=== PATIENT | male | born 1930 | race Caucasian/White ===

== ENCOUNTER 2018-06-02 17:01 | Inpatient (IN) | payer OTHER ==
[~2018-06-02] VITALS: Ht 170.2 cm; Wt 87.1 kg
--- OUTSIDE RECORDS SUMMARY | 2018-06-02 17:03 | XMS REPORT | Clinical Summary ---
Author Author HEIDY [facility] Organization [facility] Address Unknown Phone Unavailable Care Team Providers Care Manager Critical Care Unit Name Role Phone Rosa Sotomayor PCP Unavailable Allergies Comments Active Allergy Reactions Severity Noted Date Unknown reaction Penicillins Other (See High 05/09/2014 Comments) Medications End Date Status Medication Sig Dispensed Refills Start Date Active cyanocobalamin (VITAMIN Take 100 mcg 0 B-12) 100 MCG tablet by mouth daily. Active docusate sodium (COLACE) Take 100 mg 0 100 MG capsule by mouth 2 (two) times daily. Active gabapentin (NEURONTIN) Take 100 mg 0 100 MG capsule by mouth 3 (three) times daily. Active simvastatin (ZOCOR) 40 MG Take 40 mg by 0 tablet mouth nightly. Active pregabalin (LYRICA) 75 MG Take 75 mg by 0 capsule mouth daily. Active folic acid (FOLVITE) 1 MG Take 1 tablet 60 tablet 0 04/26/201 tablet (1 mg total) 7 by mouth daily. Active ipratropium-albuterol Take 3 mLs by 60 ampule 0 /20/201 (DUO-NEB) 0.5 mg-3 mg(2.5 nebulization 7 mg base)/3 mL nebulizer every 6 (six) solution hours as needed for Wheezing. Active torsemide (DEMADEX) 20 MG Take 2 240 tablet 0 04/25/201 tablet tablets (40 7 mg total) by mouth 2 (two) times daily. Active arformoterol (BROVANA) 15 Take 2 mLs 240 mL 0 10/20/201 mcg/2 mL nebulizer (15 mcg 7 solution total) by nebulization 2 (two) times daily. Active budesonide (PULMICORT) Take 2 mLs 240 mL 0 10/20/201 0.5 mg/2 mL nebulizer (0.5 mg 7 solution total) by nebulization 2 (two) times daily. 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 per 04-17-2017 TTE 04/18/2017 Depressed right ventricular systolic function, per 04-17-2017 TTE 04/18/2017 Diastolic dysfunction, per 04-17-2017 TTE 04/18/2017 Anemia 04/18/2017 Volume overload 04/18/2017 Chronic respiratory failure with hypercapnia 04/18/2017 Emphysema lung (HCC), per 04-15-2017 CT-scan 04/16/2017 SOB (shortness of breath) 04/15/2017 Chronic acquired lymphedema 04/15/2017 Hyperlipidemia 04/15/2017 Peripheral polyneuropathy 04/15/2017 Essential hypertension 04/15/2017 History of COPD 04/15/2017 Social History Date Tobacco Use Types Packs/Day Years Used Unknown If Ever Smoked Smokeless Tobacco: Never Used Alcohol Use Drinks/Week oz/Week Comments No Sex Assigned at Date Recorded Not on file Industry Job Start Date Occupation Not on file Not on file Not on file Travel End Travel History Travel Start No recent travel history available. Last Filed Vital Signs Not on file Plan of Treatment Not on file Results Not on fileafter 06/01/2017 Insurance Payer Benefit Subscriber ID Type Phone Address Plan / Group [employer] xxxxxxxxx [facility] ALL Contracted Advance Directives For more information, please contact: [facility] [address] [place] [address] Date Inactivated Comments Code Status Date Activated 04/25/2017 5:42 PM Full Code 04/15/2017 8:29 PM This code status was determined by: Patient 05/10/2014 12:27 PM Full Code 05/09/2014 4:14 PM This code status was determined by: Patient
--- OUTSIDE RECORDS SUMMARY | 2018-06-02 17:04 | XMS REPORT ---
Author Author [facility] Address Unknown Phone Unavailable Care Team Providers Care Supply Chain Systems Manager Name Role Phone AGA MONIQUEJaniceJOSE ENRIQUE KILPATRICK Unavailable Unavailable Problems This patient has no known problems. Allergies, Adverse Reactions, Alerts This patient has no known allergies or adverse reactions. Medications This patient has no known medications. Results Test Description Test Time Test Comments Text Results Atomic Results Result Comments BLOOD CULTURE 2017-04-28 01:00:00 CULTURE (BEAKER) (test lelm=4719) No growth in 5 days BLOOD [id number] 01:00:00* Test Item Value Reference Range Comments CULTURE (BEAKER) (test rsxp=6852) No growth in 5 days BASIC METABOLIC [id number] 07:46:00* Test Item Value Reference Range Comments SODIUM (BEAKER) (test fcrm=627) 137 meq/L 136-145 POTASSIUM (BEAKER) (test hrrm=932) 3.9 meq/L 3.5-5.1 CHLORIDE (BEAKER) (test kftn=238) 97 meq/L 98-107 CO2 (BEAKER) (test kkzi=865) 31 meq/L 22-29 BLOOD UREA NITROGEN (BEAKER) (test uldp=445) 39 mg/dL 7-21 CREATININE (BEAKER) (test vjcq=681) 2.07 mg/dL 0.57-1.25 GLUCOSE RANDOM (BEAKER) (test wkxv=321) 98 mg/dL 70-105 CALCIUM (BEAKER) (test kyhh=405) 8.6 mg/dL 8.4-10.2 EGFR (BEAKER) (test peyj=6078) 31 mL/min/1.73 sq m ESTIMATED GFR IS NOT ACCURATE CREATININE CLEARANCE IN PREDICTING GLOMERULAR FILTRATION RATE. ESTIMATED GFR IS NOT APPLICABLE FOR DIALYSIS PATIENTS. BASIC METABOLIC [id number] 05:30:00* Test Item Value Reference Range Comments SODIUM (BEAKER) (test vwwz=655) 138 meq/L 136-145 POTASSIUM (BEAKER) (test rdsn=730) 3.9 meq/L 3.5-5.1 CHLORIDE (BEAKER) (test qxsy=494) 98 meq/L 98-107 CO2 (BEAKER) (test rrvu=525) 33 meq/L 22-29 BLOOD UREA NITROGEN (BEAKER) (test zlvy=731) 40 mg/dL 7-21 CREATININE (BEAKER) (test rhjb=404) 2.09 mg/dL 0.57-1.25 GLUCOSE RANDOM (BEAKER) (test reop=995) 103 mg/dL 70-105 CALCIUM (BEAKER) (test ieqh=407) 8.6 mg/dL 8.4-10.2 EGFR (BEAKER) (test aqno=9646) 30 mL/min/1.73 sq m ESTIMATED GFR IS NOT ACCURATE CREATININE CLEARANCE IN PREDICTING GLOMERULAR FILTRATION RATE. ESTIMATED GFR IS NOT APPLICABLE FOR DIALYSIS PATIENTS. VANCOMYCIN LEVEL, [id number] 05:21:00* Test Item Value Reference Range Comments VANCOMYCIN RANDOM (BEAKER) (test rvfh=376) 17.2 ug/mL Reference Range: No NormalsBASIC METABOLIC [id number] 05:52:00* Test Item Value Reference Range Comments SODIUM (BEAKER) (test jbex=606) 136 meq/L 136-145 POTASSIUM (BEAKER) (test xpbw=486) 4.3 meq/L 3.5-5.1 CHLORIDE (BEAKER) (test ixrs=925) 99 meq/L 98-107 CO2 (BEAKER) (test qdtc=920) 30 meq/L 22-29 BLOOD UREA NITROGEN (BEAKER) (test rurq=769) 40 mg/dL 7-21 CREATININE (BEAKER) (test uqve=107) 2.15 mg/dL 0.57-1.25 GLUCOSE RANDOM (BEAKER) (test hivd=441) 111 mg/dL 70-105 CALCIUM (BEAKER) (test wavh=144) 8.7 mg/dL 8.4-10.2 EGFR (BEAKER) (test vqws=6143) 29 mL/min/1.73 sq m ESTIMATED GFR IS NOT ACCURATE CREATININE CLEARANCE IN PREDICTING GLOMERULAR FILTRATION RATE. ESTIMATED GFR IS NOT APPLICABLE FOR DIALYSIS PATIENTS. B-TYPE NATRIURETIC FACTOR (BNP)2017-04-22 05:50:00* Test Item Value Reference Range Comments B-TYPE NATRIURETIC PEPTIDE (BEAKER) (test hvky=612) 1053 pg/mL 0-100 U/S, RENAL, [id number] 21:49:00Reason for exam:->right exophytic lesion seen on ct chestFINAL REPORT Renal ultrasound. Clinical History: right exophytic lesion seen on ct chest. Comparison Study: CT scan of the chest dated April 15, 2017. Findings: This is a limited visibility study. The right kidney measures 10.3 x 5.1 x 4.9 cm and left kidney measures 10.6 x 5.2 x 5.6 cm. There is no evidence of hydronephrosis, nephrolithiasis or renal mass on either side. The echogenicity is normal bilaterally. The cortical thickness on the right side is 1.1 cm and on the left side is 1.0 cm. Bilateral renal cysts are seen. On the right side, there are three measuring 3.7 x 2.1 x 3.0 cm the lower pole, 2.5 x 3.1 x 2.3 cm in the interpolar region and 2.1 x 2.0 x 2.0 cm in the lower pole. On the left side, a 2.8 x 2.3 x 3.2 cm lower pole cyst is present. Color flow is documented to both kidneys. The bladder is partially filled with urine. Impression:1. Bilateral renal cysts. The exophytic upper pole lesion seen on CT scan is not as well seen on ultrasound as this is a limited study but statistically most likely also represents a cyst. Signed: Domenic Roldan MDReport Verified Date/Time: 04/21/2017 21:49:37 Reading Location: [address] Consult Reading Room NOFIXATION ELECTROPHORESIS (DUSTIN) 2017-04-21 16:18:00* Test Item Value Reference Range Comments IMMUNOGLOBULIN G (IGG) (BEAKER) (test msdw=264) 1878 mg/dL 540-1822 IMMUNOGLOBULIN A (IGA) (BEAKER) (test ehlx=252) 821 mg/dL 63-484 IMMUNOGLOBULIN M (IGM) (BEAKER) (test idmo=986) 80 mg/dL 22-293 SERUM DUSTIN ID (BEAKER) (test kzss=3978) No monoclonal proteins detected. Polyclonal distribution of immunoglobulins. VDES-VFBPDHJMEWR-172 (BEAKER) (test ubgt=4925) Tenisha Miranda MD (electronic signature) Do not collect, specimen already in lab.BASIC METABOLIC [id number] 14:11:00 * Test Item Value Reference Range Comments SODIUM (BEAKER) (test ktqw=606) 138 meq/L 136-145 POTASSIUM (BEAKER) (test wqzk=550) 4.2 meq/L 3.5-5.1 CHLORIDE (BEAKER) (test fcxx=907) 97 meq/L 98-107 CO2 (BEAKER) (test xbdw=224) 33 meq/L 22-29 BLOOD UREA NITROGEN (BEAKER) (test gjgz=363) 39 mg/dL 7-21 CREATININE (BEAKER) (test fedf=597) 2.22 mg/dL 0.57-1.25 GLUCOSE RANDOM (BEAKER) (test yrve=880) 124 mg/dL 70-105 CALCIUM (BEAKER) (test leke=517) 9.3 mg/dL 8.4-10.2 EGFR (BEAKER) (test hlvz=0929) 28 mL/min/1.73 sq m ESTIMATED GFR IS NOT ACCURATE CREATININE CLEARANCE IN PREDICTING GLOMERULAR FILTRATION RATE. ESTIMATED GFR IS NOT APPLICABLE FOR DIALYSIS PATIENTS. URINE PROTEIN ELECTROPHORESIS, [id number] 12:30:00* Test Item Value Reference Range Comments PROTEIN, URINE (BEAKER) (test fqam=3998) 42 mg/dL 0-14 ALBUMIN URINE ELP (BEAKER) (test igqy=9386) 38.9 % GAMMA GLOBULIN URINE (BEAKER) (test dtml=3559) 61.1 % UPEP, ID-438 (BEAKER) (test kqoe=4337) No monoclonal bands detected. LIIN-LJAHMPXRIJA-974 (BEAKER) (test dpmp=3012) Tenisha Miranda MD (electronic signature) PROTEIN ELECTROPHORESIS, [id number] 12:25:00* Test Item Value Reference Range Comments ALBUMIN FRACTION (BEAKER) (test rllj=481) 2.2 g/dL 3.5-5.5 ALPHA 1 FRACTION (BEAKER) (test airm=727) 0.4 g/dL 0.2-0.4 ALPHA 2 FRACTION (BEAKER) (test fupi=452) 0.8 g/dL 0.5-0.9 BETA FRACTION (BEAKER) (test isdh=956) 1.0 g/dL 0.6-1.1 GAMMA GLOBULIN FRACTION (BEAKER) (test cupi=906) 1.9 g/dL 0.7-1.7 INTERPRETATION-119 (BEAKER) (test vzpc=8654) Decreased albumin with concurrent relative increases in all globulin fractions. Polyclonal elevation of gamma globulins, suggesting chronic inflammation. Serum DUSTIN ordered to exclude underlying monoclonal bands. FTCJ-XPCMAUFDQMN-906 (BEAKER) (test frvi=4742) Tenisha Miranda MD (electronic signature) PROTEIN TOTAL SERUM, SPEP (BEAKER) (test cyuz=9405) 6.3 gm/dL 6.0-8.3 Do not collect, specimen already in lab.BLOOD [id number] 01:01:00* Test Item Value Reference Range Comments CULTURE (BEAKER) (test nfos=5194) No growth in 5 days VANCOMYCIN LEVEL, [id number] 19:23:00* Test Item Value Reference Range Comments VANCOMYCIN RANDOM (BEAKER) (test mbyf=088) 20.1 ug/mL Reference Range: No NormalsRAD, KNEE, 1 OR 2 VIEWS, [id number] 15:36:00 Reason for exam:->left knee pain upon weight bearingShould this be performed at the bedside?->YesFINAL REPORT Left knee, two images HISTORY: Pain COMPARISON: 04/19/2017 IMPRESSION:No fracture. No dislocation. No joint effusion. Signed: Chaparrita Delgadillo MDReport Verified Date/Time: 04/20/2017 15:36:18 Reading Location: [facility] C013 Transitional Reading Room OMYCIN LEVEL, [id number] 22:40:00* Test Item Value Reference Range Comments VANCOMYCIN RANDOM (BEAKER) (test kvjk=137) 28.2 ug/mL Reference Range: No NormalsPlease hold dose of vancomycin if level > 20 CREATININE, RANDOM [id number] 20:40:00* Test Item Value Reference Range Comments CREATININE URINE (BEAKER) (test qcom=346) 67.8 mg/dL Reference Range: No NormalsPROTEIN, RANDOM [id number] 20:40:00* Test Item Value Reference Range Comments PROTEIN, URINE (WILIAN) (test fnjr=9018) 42 mg/dL 0-14 SODIUM, RANDOM [id number] 20:40:00* Test Item Value Reference Range Comments SODIUM URINE (WILIAN) (test klbn=029) 41 meq/L Reference Range: No NormalsRAD, LEG, [id number] 17:18:00Reason for exam:-> cellulitis/swellingShould this be performed at the bedside?->YesFINAL REPORT Exam:1. Left tibia/fibula, three images.2. Left ankle, four images. HISTORY: Cellulitis COMPARISON: None IMPRESSION:Marked swelling of the imaged left thoracotomy. No underlying fracture or dislocation. No radiopaque foreign body. Signed: Chaparrita Delgadillo Verified Date/Time: 04/19/2017 17:18:53 Reading Location: [address] Consult Reading Room Electr onically signed by: CHAPARRITA DELGADILLO M.D. on 04/19/2017 05:18 PM RAD, ANKLE, MIN 3 VIEWS, [id number] 17:18:00Reason for exam:->cellulitis/swelling Should this be performed at the bedside?->YesFINAL REPORT Exam:1. Left tibia/fibula, three images.2. Left ankle, four images. HISTORY: Cellulitis COMPARISON: None IMPRESSION:Marked swelling of the imaged left thoracotomy. No underlying fracture or dislocation. No radiopaque foreign body. Signed: Chaparrita Delgadillo Verified Date/Time: 04/19/2017 17:18:53 Reading Location: [facility] C013 Consult Reading Room [id number] 06:32:00 * Test Item Value Reference Range Comments FERRITIN (WILIAN) (test jnqe=499) 254 ng/mL 5-275 VITAMIN B12 AND [id number] 06:32:00* Test Item Value Reference Range Comments VITAMIN B12 (BEAKER) (test ecka=871) 275 pg/mL 213-816 FOLATE (BEAKER) (test utfr=945) 3.4 ng/mL >=7.0 IRON, TIBC, % SAT. (WITHOUT FERRITIN)2017-04-19 06:00:00* Test Item Value Reference Range Comments IRON (BEAKER) (test dqwc=634) 15 ug/dL 40-160 TOTAL IRON BINDING CAPACITY (BEAKER) (test mzrn=229) 140 ug/dL 250-450 IRON % SATURATION (2) (BEAKER) (test zgvb=2247) 11 % 20-55 [id number] 05:58:00* Test Item Value Reference Range Comments PHOSPHORUS (BEAKER) (test abrp=487) 3.2 mg/dL 2.3-4.7 [id number] 05:58:00* Test Item Value Reference Range Comments MAGNESIUM (BEAKER) (test huet=596) 1.9 mg/dL 1.6-2.6 BASIC METABOLIC [id number] 05:58:00* Test Item Value Reference Range Comments SODIUM (BEAKER) (test zrkd=534) 139 meq/L 136-145 POTASSIUM (BEAKER) (test nhnp=808) 4.1 meq/L 3.5-5.1 CHLORIDE (BEAKER) (test aaze=475) 99 meq/L 98-107 CO2 (BEAKER) (test zbgh=184) 29 meq/L 22-29 BLOOD UREA NITROGEN (BEAKER) (test qouq=383) 36 mg/dL 7-21 CREATININE (BEAKER) (test kino=533) 2.15 mg/dL 0.57-1.25 GLUCOSE RANDOM (BEAKER) (test orig=914) 108 mg/dL 70-105 CALCIUM (BEAKER) (test vmuo=177) 8.4 mg/dL 8.4-10.2 EGFR (BEAKER) (test vdvf=2279) 29 mL/min/1.73 sq m ESTIMATED GFR IS NOT ACCURATE CREATININE CLEARANCE IN PREDICTING GLOMERULAR FILTRATION RATE. ESTIMATED GFR IS NOT APPLICABLE FOR DIALYSIS PATIENTS. BLOOD GAS, [id number] 17:07:00* Test Item Value Reference Range Comments PH ARTERIAL (BEAKER) (test lttg=686) 7.35 7.35-7.45 PCO2 ARTERIAL (BEAKER) (test xkqi=192) 62 mmHg 35-45 PO2 ARTERIAL (BEAKER) (test arnn=671) 98 mmHg 80-90 O2 SATURATION ARTERIAL (BEAKER) (test aihq=495) 96.9 % 96.0-97.0 HCO3 ARTERIAL (BEAKER) (test oslo=574) 34 mmol/L 21-29 BASE EXCESS ARTERIAL (BEAKER) (test vron=817) 6.6 mmol/L -2.0-3.0 PATIENT TEMPERATURE (BEAKER) (test rmxf=2963) 37.2 C FIO2 (BEAKER) (test wwqb=1904) 21.0 % URINALYSIS W/ [id number] 15:51:00* Test Item Value Reference Range Comments COLOR (BEAKER) (test ccel=980) Yellow CLARITY (BEAKER) (test cnoa=283) Clear SPECIFIC GRAVITY UA (BEAKER) (test yonk=505) 1.007 1.001-1.035 PH UA (BEAKER) (test sozq=314) 5.0 5.0-8.0 PROTEIN UA (BEAKER) (test spwe=407) 30 mg/dL Negative GLUCOSE UA (BEAKER) (test bunr=217) Negative Negative KETONES UA (BEAKER) (test fofn=362) Negative Negative BILIRUBIN UA (BEAKER) (test zvqz=735) Negative Negative BLOOD UA (BEAKER) (test rcxf=845) Large Negative NITRITE UA (BEAKER) (test khwg=345) Negative Negative LEUKOCYTE ESTERASE UA (BEAKER) (test tbug=306) Negative Negative UROBILINOGEN UA (BEAKER) (test nhyc=067) 0.2 mg/dL 0.2-1.0 RBC UA (BEAKER) (test aztm=069) 62 /HPF WBC UA (BEAKER) (test jsyc=011) 3 /HPF BACTERIA (BEAKER) (test dywt=079) Rare MUCUS (BEAKER) (test yijk=0041) Rare SQUAMOUS EPITHELIAL (BEAKER) (test wwws=264) < /HPF HYALINE CASTS (BEAKER) (test swzv=081) 11 /LPF CRYSTALS, URINE (BEAKER) (test qitw=5471) Rare SOURCE(BEAKER) (test dasg=3059) Urine, Voided WOUND CULTURE + GRAM [id number] 10:12:00* Test Item Value Reference Range Comments CULTURE (BEAKER) (test cexw=0428) Clindamycin (test code=10) Erythromycin (test code=4) Linezolid (test code=40) Nitrofurantoin (test code=23) Oxacillin (test code=14) Rifampin (test code=43) Tetracycline (test code=2) Trimethoprim + Sulfamethoxazole (test code=47) Vancomycin (test code=13) CULTURE (BEAKER) (test saiy=7747) 4+ Methicillin resistant Staphylococcus aureus GRAM STAIN RESULT (BEAKER) (test neox=7854) No WBCs GRAM STAIN RESULT (BEAKER) (test dsxl=012676) 1+ gram positive cocci in pairs 4+ skin [id number] 06:15:00* Test Item Value Reference Range Comments MAGNESIUM (BEAKER) (test ybjq=942) 2.0 mg/dL 1.6-2.6 BASIC METABOLIC [id number] 06:15:00* Test Item Value Reference Range Comments SODIUM (BEAKER) (test zuvl=161) 139 meq/L 136-145 POTASSIUM (BEAKER) (test hahz=319) 4.2 meq/L 3.5-5.1 CHLORIDE (BEAKER) (test mckv=545) 100 meq/L 98-107 CO2 (BEAKER) (test ntfz=334) 30 meq/L 22-29 BLOOD UREA NITROGEN (BEAKER) (test yrsg=797) 33 mg/dL 7-21 CREATININE (BEAKER) (test semo=276) 2.04 mg/dL 0.57-1.25 GLUCOSE RANDOM (BEAKER) (test rnvv=754) 109 mg/dL 70-105 CALCIUM (BEAKER) (test hyuy=683) 8.3 mg/dL 8.4-10.2 EGFR (BEAKER) (test julh=7808) 31 mL/min/1.73 sq m ESTIMATED GFR IS NOT ACCURATE CREATININE CLEARANCE IN PREDICTING GLOMERULAR FILTRATION RATE. ESTIMATED GFR IS NOT APPLICABLE FOR DIALYSIS PATIENTS. CBC W/PLT COUNT & AUTO [id number] 06:09:00* Test Item Value Reference Range Comments WHITE BLOOD CELL COUNT (BEAKER) (test utcb=558) 8.3 K/ L 3.5-10.5 RED BLOOD CELL COUNT (BEAKER) (test krmd=248) 3.19 M/ L 4.63-6.08 HEMOGLOBIN (BEAKER) (test eckv=519) 9.3 GM/DL 13.7-17.5 HEMATOCRIT (BEAKER) (test odan=985) 32.0 % 40.1-51.0 MEAN CORPUSCULAR VOLUME (BEAKER) (test yfhx=006) 100.3 fL 79.0-92.2 MEAN CORPUSCULAR HEMOGLOBIN (BEAKER) (test zcxb=119) 29.2 pg 25.7-32.2 MEAN CORPUSCULAR HEMOGLOBIN CONC (BEAKER) (test azep=284) 29.1 GM/DL 32.3-36.5 RED CELL DISTRIBUTION WIDTH (BEAKER) (test yntw=185) 13.7 % 11.6-14.4 PLATELET COUNT (BEAKER) (test scdz=351) 317 K/CU MM 150-450 MEAN PLATELET VOLUME (BEAKER) (test rwlu=942) 10.4 fL 9.4-12.4 NUCLEATED RED BLOOD CELLS (BEAKER) (test sjlq=640) 0 /100 WBC 0-0 NEUTROPHILS RELATIVE PERCENT (BEAKER) (test txab=678) 71 % LYMPHOCYTES RELATIVE PERCENT (BEAKER) (test azgv=897) 16 % MONOCYTES RELATIVE PERCENT (BEAKER) (test rzsc=087) 10 % EOSINOPHILS RELATIVE PERCENT (BEAKER) (test peaa=197) 2 % BASOPHILS RELATIVE PERCENT (BEAKER) (test ftsq=852) 1 % NEUTROPHILS ABSOLUTE COUNT (BEAKER) (test ycqg=252) 5.92 K/ L 1.78-5.38 LYMPHOCYTES ABSOLUTE COUNT (BEAKER) (test phcc=972) 1.31 K/ L 1.32-3.57 MONOCYTES ABSOLUTE COUNT (BEAKER) (test jsbo=988) 0.81 K/ L 0.30-0.82 EOSINOPHILS ABSOLUTE COUNT (BEAKER) (test qsnx=670) 0.19 K/ L 0.04-0.54 BASOPHILS ABSOLUTE COUNT (BEAKER) (test kdwt=356) 0.04 K/ L 0.01-0.08 IMMATURE GRANULOCYTES-RELATIVE PERCENT (BEAKER) (test tgez=7828) 1 % 0-1 VANCOMYCIN LEVEL, [id number] 01:34:00* Test Item Value Reference Range Comments VANCOMYCIN TROUGH (BEAKER) (test okrz=023) 17.4 ug/mL 10.0-20.0 Hold further dosing for level > 20, alert and Rph.BASIC METABOLIC PANEL 2017-04-17 05:37:00* Test Item Value Reference Range Comments SODIUM (BEAKER) (test fnkr=088) 138 meq/L 136-145 POTASSIUM (BEAKER) (test kuey=645) 4.7 meq/L 3.5-5.1 CHLORIDE (BEAKER) (test pmzt=023) 100 meq/L 98-107 CO2 (BEAKER) (test ofxd=300) 28 meq/L 22-29 BLOOD UREA NITROGEN (BEAKER) (test vlhe=998) 30 mg/dL 7-21 CREATININE (BEAKER) (test ylsz=309) 2.27 mg/dL 0.57-1.25 GLUCOSE RANDOM (BEAKER) (test zdif=331) 107 mg/dL 70-105 CALCIUM (BEAKER) (test rmzi=331) 8.5 mg/dL 8.4-10.2 EGFR (BEAKER) (test gdjl=6029) 28 mL/min/1.73 sq m ESTIMATED GFR IS NOT ACCURATE CREATININE CLEARANCE IN PREDICTING GLOMERULAR FILTRATION RATE. ESTIMATED GFR IS NOT APPLICABLE FOR DIALYSIS PATIENTS. [id number] 05:34:00* Test Item Value Reference Range Comments MAGNESIUM (BEAKER) (test jlsz=290) 2.4 mg/dL 1.6-2.6 B-TYPE NATRIURETIC FACTOR (BNP)2017-04-17 05:29:00* Test Item Value Reference Range Comments B-TYPE NATRIURETIC PEPTIDE (BEAKER) (test jqow=399) 1019 pg/mL 0-100 CBC W/PLT COUNT & AUTO [id number] 05:10:00* Test Item Value Reference Range Comments WHITE BLOOD CELL COUNT (BEAKER) (test vckb=860) 8.4 K/ L 3.5-10.5 RED BLOOD CELL COUNT (BEAKER) (test yhmb=830) 3.58 M/ L 4.63-6.08 HEMOGLOBIN (BEAKER) (test mnob=200) 10.7 GM/DL 13.7-17.5 HEMATOCRIT (BEAKER) (test bigc=805) 36.5 % 40.1-51.0 MEAN CORPUSCULAR VOLUME (BEAKER) (test ldkx=504) 102.0 fL 79.0-92.2 MEAN CORPUSCULAR HEMOGLOBIN (BEAKER) (test swhi=298) 29.9 pg 25.7-32.2 MEAN CORPUSCULAR HEMOGLOBIN CONC (BEAKER) (test fvwa=710) 29.3 GM/DL 32.3-36.5 RED CELL DISTRIBUTION WIDTH (BEAKER) (test beqp=832) 13.8 % 11.6-14.4 PLATELET COUNT (BEAKER) (test upci=333) 317 K/CU MM 150-450 MEAN PLATELET VOLUME (BEAKER) (test mrdu=753) 10.5 fL 9.4-12.4 NUCLEATED RED BLOOD CELLS (BEAKER) (test ihut=104) 0 /100 WBC 0-0 NEUTROPHILS RELATIVE PERCENT (BEAKER) (test jhqk=771) 69 % LYMPHOCYTES RELATIVE PERCENT (BEAKER) (test ypnx=738) 18 % MONOCYTES RELATIVE PERCENT (BEAKER) (test nkfs=317) 7 % EOSINOPHILS RELATIVE PERCENT (BEAKER) (test kalo=031) 5 % BASOPHILS RELATIVE PERCENT (BEAKER) (test cmmh=642) 0 % NEUTROPHILS ABSOLUTE COUNT (BEAKER) (test lqko=981) 5.77 K/ L 1.78-5.38 LYMPHOCYTES ABSOLUTE COUNT (BEAKER) (test zhyh=715) 1.54 K/ L 1.32-3.57 MONOCYTES ABSOLUTE COUNT (BEAKER) (test ggyx=571) 0.60 K/ L 0.30-0.82 EOSINOPHILS ABSOLUTE COUNT (BEAKER) (test wneb=020) 0.40 K/ L 0.04-0.54 BASOPHILS ABSOLUTE COUNT (BEAKER) (test cbjs=701) 0.03 K/ L 0.01-0.08 IMMATURE GRANULOCYTES-RELATIVE PERCENT (BEAKER) (test dbpi=7426) 0 % 0-1 PUL PERF IMAGING, [facility], [id number] 11:46:00FINAL REPORT PROCEDURE: V/Q LUNG SCAN CPT CODE: 24999 INDICATION: Acute chest pain, dyspnea PROTOCOL: 10.5 mCi of Xe-133 gas was administered by inhalation. Single breath and rebreathing/washout images were obtained in the anterior and the posterior projections. 4.2 mCi of Tc-99m MAA was then injected intravenously, and static perfusion images were obtained in multiple projections. FINDINGS: Ventilation: Initial tracer distribution is markedly irregular and decreased in both lungs, worse on the left. Washout is markedly delayed bilaterally with redistribution. Perfusion: Tracer distribution is nonsegmentally, irregularly decreased in both lungs. IMPRESSION: 1. Low probability of acute pulmonary embolization.2. Bilateral parenchymal/obstructive abnormality. Signed: Mariama Torres MDReport Verified Date/Time: 04/16/2017 11:46:39 Reading Location: [address] Room 1 1:46 AM HEMOGLOBIN [id number] 08:43:00* Test Item Value Reference Range Comments HEMOGLOBIN A1C (BEAKER) (test zrhh=923) 6.2 % 4.3-6.1 [id number] 07:29:00* Test Item Value Reference Range Comments MAGNESIUM (BEAKER) (test upvy=470) 2.3 mg/dL 1.6-2.6 BASIC METABOLIC [id number] 07:29:00* Test Item Value Reference Range Comments SODIUM (BEAKER) (test rtnu=620) 138 meq/L 136-145 POTASSIUM (BEAKER) (test teyo=317) 4.3 meq/L 3.5-5.1 CHLORIDE (BEAKER) (test wlvk=998) 103 meq/L 98-107 CO2 (BEAKER) (test odmt=995) 29 meq/L 22-29 BLOOD UREA NITROGEN (BEAKER) (test bjac=207) 30 mg/dL 7-21 CREATININE (BEAKER) (test ktfu=260) 2.00 mg/dL 0.57-1.25 GLUCOSE RANDOM (BEAKER) (test gokq=750) 106 mg/dL 70-105 CALCIUM (BEAKER) (test djmt=248) 8.3 mg/dL 8.4-10.2 EGFR (BEAKER) (test hwuj=0919) 32 mL/min/1.73 sq m ESTIMATED GFR IS NOT ACCURATE CREATININE CLEARANCE IN PREDICTING GLOMERULAR FILTRATION RATE. ESTIMATED GFR IS NOT APPLICABLE FOR DIALYSIS PATIENTS. LIPID [id number] 07:29:00* Test Item Value Reference Range Comments TRIGLYCERIDES (BEAKER) (test ncfy=392) 58 mg/dL CHOLESTEROL (BEAKER) (test owub=479) 96 mg/dL HDL CHOLESTEROL (BEAKER) (test uwun=526) 27 mg/dL LDL CHOLESTEROL CALCULATED (BEAKER) (test zpfl=092) 57 mg/dL Triglyceride Reference Range: Low Risk <150 Borderline 150-199 High Risk 200-499 Very High Risk >=500Cholesterol Reference Range: Low Risk <200 Borderline 200-239 High Risk >240HDL Cholesterol Reference Range: Low Risk >=60 High Risk <40LDL Cholesterol Reference Range: Optimal <100 Near Optimal 100-129 Borderline 130-159 High 160-189 Very High >=190 VITAMIN [id number] 07:26:00* Test Item Value Reference Range Comments VITAMIN B12 (BEAKER) (test sjeq=196) 330 pg/mL 213-816 TROPONIN [id number] 07:02:00* Test Item Value Reference Range Comments TROPONIN I (BEAKER) (test jqwg=369) 0.05 ng/mL 0.00-0.03 Troponin I (TnI) levels must be interpreted in the context of the presenting sym ptoms and the clinical findings. Elevated TnI levels indicate myocardial damage, but are not specific for ischemic heart disease. Elevated TnI levels are seen in patients with other cardiac conditions (including myocarditis and congestive h eart failure), and slight TnI elevations occur in patients with other conditions , including sepsis, renal failure, acidosis, acute neurological disease, and per sistent tachyarrhythmia.B-TYPE NATRIURETIC FACTOR (BNP)2017-04-16 07:01:00* Test Item Value Reference Range Comments B-TYPE NATRIURETIC PEPTIDE (BEAKER) (test bkic=674) 1096 pg/mL 0-100 CBC W/PLT COUNT & AUTO [id number] 06:48:00* Test Item Value Reference Range Comments WHITE BLOOD CELL COUNT (BEAKER) (test sxzb=731) 7.4 K/ L 3.5-10.5 RED BLOOD CELL COUNT (BEAKER) (test dzlm=888) 3.09 M/ L 4.63-6.08 HEMOGLOBIN (BEAKER) (test jymc=398) 9.3 GM/DL 13.7-17.5 HEMATOCRIT (BEAKER) (test hsnj=955) 30.6 % 40.1-51.0 MEAN CORPUSCULAR VOLUME (BEAKER) (test gcin=546) 99.0 fL 79.0-92.2 MEAN CORPUSCULAR HEMOGLOBIN (BEAKER) (test gtvz=790) 30.1 pg 25.7-32.2 MEAN CORPUSCULAR HEMOGLOBIN CONC (BEAKER) (test rhur=687) 30.4 GM/DL 32.3-36.5 RED CELL DISTRIBUTION WIDTH (BEAKER) (test cnat=390) 13.9 % 11.6-14.4 PLATELET COUNT (BEAKER) (test nycb=248) 298 K/CU MM 150-450 MEAN PLATELET VOLUME (BEAKER) (test dmsq=749) 10.5 fL 9.4-12.4 NUCLEATED RED BLOOD CELLS (BEAKER) (test opjt=623) 0 /100 WBC 0-0 NEUTROPHILS RELATIVE PERCENT (BEAKER) (test qtsu=996) 69 % LYMPHOCYTES RELATIVE PERCENT (BEAKER) (test hdtp=130) 18 % MONOCYTES RELATIVE PERCENT (BEAKER) (test expv=571) 8 % EOSINOPHILS RELATIVE PERCENT (BEAKER) (test gvjg=203) 4 % BASOPHILS RELATIVE PERCENT (BEAKER) (test gpgc=965) 0 % NEUTROPHILS ABSOLUTE COUNT (BEAKER) (test lgdr=588) 5.07 K/ L 1.78-5.38 LYMPHOCYTES ABSOLUTE COUNT (BEAKER) (test zibo=136) 1.29 K/ L 1.32-3.57 MONOCYTES ABSOLUTE COUNT (BEAKER) (test lsnm=747) 0.62 K/ L 0.30-0.82 EOSINOPHILS ABSOLUTE COUNT (BEAKER) (test vaau=053) 0.32 K/ L 0.04-0.54 BASOPHILS ABSOLUTE COUNT (BEAKER) (test egce=596) 0.03 K/ L 0.01-0.08 IMMATURE GRANULOCYTES-RELATIVE PERCENT (BEAKER) (test fsuq=6101) 1 % 0-1 PROTHROMBIN TIME/[id number] 06:43:00* Test Item Value Reference Range Comments PROTIME (BEAKER) (test tgyy=009) 15.3 seconds 11.7-14.7 INR (BEAKER) (test ktiu=402) 1.2 <=5.9 RECOMMENDED COUMADIN/WARFARIN INR THERAPY RANGESSTANDARD DOSE: 2.0 - 3.0 Inclu tiffanie: PROPHYLAXIS for venous thrombosis, systemic embolization; TREATMENT for kayleigh ous thrombosis and/or pulmonary embolus.HIGH RISK: Target INR is 2.5-3.5 for pat ients with mechanical heart valves.TROPONIN [id number] 02:11:00* Test Item Value Reference Range Comments TROPONIN I (WILIAN) (test ksyy=203) 0.06 ng/mL 0.00-0.03 Troponin I (TnI) levels must be interpreted in the context of the presenting sym ptoms and the clinical findings. Elevated TnI levels indicate myocardial damage, but are not specific for ischemic heart disease. Elevated TnI levels are seen in patients with other cardiac conditions (including myocarditis and congestive h eart failure), and slight TnI elevations occur in patients with other conditions , including sepsis, renal failure, acidosis, acute neurological disease, and per sistent tachyarrhythmia.CT, CHEST, WITHOUT [id number] 22:59:00FINAL REPORT EXAMINATION: Noncontrast chest CT CLINICAL HISTORY: Shortness of breath COMPARISON EXAM: None TECHNIQUE: Axial noncontrast tomographic images were acquired through the thorax. The exam was performed acco rding to our departmental dose optimization program which includes automated exp osure control, adjustment of the mA and/or kV according to patient's size and/or use of iterative reconstructive technique. FINDINGS: Evaluation of the mediast inal structures is limited by the absence of IV contrast. The thoracic aorta is mildly ectatic without evidence of discrete aneurysm. Calcific atherosclerotic c hanges are noted involving the aorta, great vessels arising off of the aorta, co ronary arteries and the visualized mesenteric and renal arteries in the upper ab domen. The heart is borderline enlarged. The central right pulmonary artery is dilated measuring 3.5 cm. The central left pulmonary artery is also mildly dilat ed measuring 3.1 cm. The esophagus is decompressed. Numerous small shotty nonspe cific lymph nodes are noted in the axillary regions and mediastinum without evid ence of pathologic enlargement. The trachea and central airways demonstrate ana scent changes of aging. No evidence of a discrete endobronchial lesion or endolu sindy debris. The lungs are associated with hyperaeration and radiolucency comp atible with architectural distortion related to obstructive lung disease/emphyse ma. Mild atelectasis or scarring is noted in the dependent portion of both lungs . No evidence of a discrete pneumonia, pulmonary edema, pneumothorax or pneumome diastinum. There are small partially calcified left pleural plaques. There is al so mild pleural thickening without evidence of a significant pleural effusion. T he gallbladder is incompletely visualized. Small foci of increased attenuation w ithin the gallbladder are nonspecific but suspicious for gallstones. Scattered c alcifications within the liver and spleen are compatible with the sequela from r emote granulomatous infection. Both adrenal glands are associated with subtle s ubcentimeter nodules, too small to further characterize. Upper pole the right ki dney is associated with an incompletely visualized exophytic 2.6 cm nodule. A ti ny subcentimeter nodule is noted along the superior margin of the left kidney. A bsence of IV contrast limits further evaluation. Remote rib fractures are again noted with callus. Multiple mid lower thoracic vertebral bodies are associated with compression deformities, chronicity indeterminant. However findings may be chronic given the adjacent degenerative disc disease. IMPRESSION: Obstructive austin ng disease/emphysema. Diffuse calcific atherosclerosis including coronary artery involvement. Mild dilatation of the central pulmonary arteries, possible pulmon zahraa hypertension. Additional findings as detailed above. Signed: eGrson Johnson Verified Date/Time: 04/15/2017 22:59:15 Reading Location: [address] Reading Room Electronically signed by: GERSON JOHNSON M.D. on 10:59 PM CREATINE KINASE (CK), TOTAL AND [id number] 22:06:00* Test Item Value Reference Range Comments CREATINE KINASE TOTAL (BEAKER) (test gqrp=195) 60 U/L 29-200 CREATINE KINASE-MB (BEAKER) (test ybkd=537) 3.1 ng/mL 0.0-6.6 CREATINE KINASE-MB INDEX (BEAKER) (test zihx=257) 5.2 % CK-MB Reference Range:<6.7 Normal6.7-10.0 Borderline>10.0 Abnormal [id number] 21:32:00* Test Item Value Reference Range Comments D-DIMER QUANTITATIVE (BEAKER) (test iwgq=926) 2.10 MG/L FEU <0.50 Intended Use: The D-Dimer Assay can be used to aid in the diagnosis of Deep Vein Thrombosis (DVT) and Pulmonary Embolism Disease (PED).In patients with low pre- test probability, various studies concerning STA Liatest D-dimer test have repor alvarez that with a cutoff value of 0.50 MG/L FEU, the Negative Predictive Value (BINDERY MACHINE SETTER V) regarding the exclusion of thrombosis is within 95-100% range.RAD, CHEST, 1 VIEW, NON [id number] 18:57:00Reason for exam:->SHORTNESS OF BREATHShould this be performed at the bedside?->YesFINAL REPORT Comparison: 05/09/2014 TECHNIQUE: Single view of the chest FINDINGS: Blunting of the bilateral costophrenic sulci may indicate trace pleural effusions or thickening. Lungs otherwise grossly clear. Cardiac silhouette is enlarged. Aortic calcifications are seen. No acute skeletal abnormality. Signed: Warren Lewis Verified Date/Time: 04/15/2017 18:57:23 Reading Location: [address] Consult Reading Room , BRAIN, WITHOUT [id number] 17:38:00Reason for exam:->confusionFINAL REPORT CT head without contrast 04/15/2017 5:36 PM CLINICAL HISTORY: Confusion/delirium, altered LOC, unexplainedconfusion TECHNIQUE: Axial noncontrast CT images through the head were obtained. This examination was performed according to our departmental dose optimization program, which includes automated exposure control, adjustment of the mA and/or kV according to patient size, and/or use of iterated reconstruction technique. COMPARISON: None available FINDINGS: There is no hemorrhage, extra-axial collection, mass, hydrocephalus, or midline shift. There is moderately advanced microvascular ischemia in the supratentorial white matter. There is generalized parenchymal volume loss. There is paranasal sinus mucosal thickening without fluid levels. The tympanomastoid cavities are well- aerated. There is a chronic right lamina papyracea deformity. There is a right parietal craniotomy. IMPRESSION: No intracranial hemorrhage or mass effect. Chronic appearing findings as discussed. If concern for acute pathology persists, further evaluation with MRI is recommended. Signed: Terrell Teixeira Verified Date/Time: 04/15/2017 17:38:03 Reading Location: [facility] Radiology Reading Room TINE KINASE (CK), TOTAL AND [id number] 17:29:00* Test Item Value Reference Range Comments CREATINE KINASE TOTAL (BEAKER) (test ubbc=779) 68 U/L 29-200 CREATINE KINASE-MB (BEAKER) (test rrpg=451) 3.3 ng/mL 0.0-6.6 CREATINE KINASE-MB INDEX (BEAKER) (test gzib=436) 4.9 % CK-MB Reference Range:<6.7 Normal6.7-10.0 Borderline>10.0 Abnormal TROPONIN [id number] 17:29:00* Test Item Value Reference Range Comments TROPONIN I (BEAKER) (test ngue=806) 0.05 ng/mL 0.00-0.03 Troponin I (TnI) levels must be interpreted in the context of the presenting sym ptoms and the clinical findings. Elevated TnI levels indicate myocardial damage, but are not specific for ischemic heart disease. Elevated TnI levels are seen in patients with other cardiac conditions (including myocarditis and congestive h eart failure), and slight TnI elevations occur in patients with other conditions , including sepsis, renal failure, acidosis, acute neurological disease, and per sistent tachyarrhythmia.B-TYPE NATRIURETIC FACTOR (BNP)2017-04-15 17:28:00* Test Item Value Reference Range Comments B-TYPE NATRIURETIC PEPTIDE (BEAKER) (test mbxu=992) 890 pg/mL 0-100 [id number] 17:21:00* Test Item Value Reference Range Comments MAGNESIUM (BEAKER) (test ecvc=073) 2.4 mg/dL 1.6-2.6 Specimen slightly hemolyzed BASIC METABOLIC [id number] 17:21:00* Test Item Value Reference Range Comments SODIUM (BEAKER) (test mhju=486) 138 meq/L 136-145 POTASSIUM (BEAKER) (test rpwf=464) 4.7 meq/L 3.5-5.1 Specimen slightly hemolyzed CHLORIDE (BEAKER) (test mjzs=823) 103 meq/L 98-107 CO2 (BEAKER) (test flwy=425) 26 meq/L 22-29 BLOOD UREA NITROGEN (BEAKER) (test oyfm=801) 29 mg/dL 7-21 CREATININE (BEAKER) (test otoe=410) 1.97 mg/dL 0.57-1.25 Specimen slightly hemolyzed GLUCOSE RANDOM (BEAKER) (test ulrh=648) 94 mg/dL 70-105 CALCIUM (BEAKER) (test hjco=657) 8.8 mg/dL 8.4-10.2 EGFR (BEAKER) (test grww=1316) 32 mL/min/1.73 sq m ESTIMATED GFR IS NOT ACCURATE CREATININE CLEARANCE IN PREDICTING GLOMERULAR FILTRATION RATE. ESTIMATED GFR IS NOT APPLICABLE FOR DIALYSIS PATIENTS. [id number] 16:54:00* Test Item Value Reference Range Comments PROTIME (BEAKER) (test xwbx=169) 15.7 seconds 11.7-14.7 INR (BEAKER) (test nnms=143) 1.3 <=5.9 PARTIAL THROMBOPLASTIN TIME (BEAKER) (test keeb=510) 34.1 seconds 22.5-36.0 RECOMMENDED COUMADIN/WARFARIN INR THERAPY RANGESSTANDARD DOSE: 2.0 - 3.0 Inclu tiffanie: PROPHYLAXIS for venous thrombosis, systemic embolization; TREATMENT for kayleigh ous thrombosis and/or pulmonary embolus.HIGH RISK: Target INR is 2.5-3.5 for pat ients with mechanical heart valves.CBC W/PLT COUNT & AUTO [id number] 16:42:00* Test Item Value Reference Range Comments WHITE BLOOD CELL COUNT (BEAKER) (test wtdu=140) 7.8 K/ L 3.5-10.5 RED BLOOD CELL COUNT (BEAKER) (test wflu=468) 3.39 M/ L 4.63-6.08 HEMOGLOBIN (BEAKER) (test vmsw=484) 10.2 GM/DL 13.7-17.5 HEMATOCRIT (BEAKER) (test amsk=973) 33.4 % 40.1-51.0 MEAN CORPUSCULAR VOLUME (BEAKER) (test gsbd=431) 98.5 fL 79.0-92.2 MEAN CORPUSCULAR HEMOGLOBIN (BEAKER) (test nvkr=210) 30.1 pg 25.7-32.2 MEAN CORPUSCULAR HEMOGLOBIN CONC (BEAKER) (test quey=630) 30.5 GM/DL 32.3-36.5 RED CELL DISTRIBUTION WIDTH (BEAKER) (test dgcd=349) 13.9 % 11.6-14.4 PLATELET COUNT (BEAKER) (test qqdz=646) 303 K/CU MM 150-450 MEAN PLATELET VOLUME (BEAKER) (test owqb=220) 10.3 fL 9.4-12.4 NUCLEATED RED BLOOD CELLS (BEAKER) (test njpu=397) 0 /100 WBC 0-0 NEUTROPHILS RELATIVE PERCENT (BEAKER) (test hxxq=195) 72 % LYMPHOCYTES RELATIVE PERCENT (BEAKER) (test lbpp=069) 16 % MONOCYTES RELATIVE PERCENT (BEAKER) (test obfy=413) 8 % EOSINOPHILS RELATIVE PERCENT (BEAKER) (test kldp=302) 3 % BASOPHILS RELATIVE PERCENT (BEAKER) (test yeax=474) 0 % NEUTROPHILS ABSOLUTE COUNT (BEAKER) (test bzll=004) 5.60 K/ L 1.78-5.38 LYMPHOCYTES ABSOLUTE COUNT (BEAKER) (test ihft=228) 1.27 K/ L 1.32-3.57 MONOCYTES ABSOLUTE COUNT (BEAKER) (test cjcm=906) 0.64 K/ L 0.30-0.82 EOSINOPHILS ABSOLUTE COUNT (BEAKER) (test okyr=836) 0.21 K/ L 0.04-0.54 BASOPHILS ABSOLUTE COUNT (BEAKER) (test nxfl=756) 0.02 K/ L 0.01-0.08 IMMATURE GRANULOCYTES-RELATIVE PERCENT (BEAKER) (test ubhw=4152) 1 % 0-1
[2018-06-02 18:28] LABS: BILIRUBIN,URINE NEGATIVE (NEGATIVE); CLARITY,URINE CLEAR (CLEAR); COLOR,URINE STRAW (YELLOW); KETONES,URINE NEGATIVE (NEGATIVE); LEUKOCYTE ESTERASE ,URINE NEGATIVE (NEGATIVE); NITRITE,URINE NEGATIVE (NEGATIVE); PROTEIN,URINE DIPSTICK TRACE (NEGATIVE); URINE UROBILINOGEN 0.2 mg/dL (0.2 - 1)
[2018-06-02 18:31] LABS: RBC,URINE 21-50 /HPF (0-5); WBC,URINE (MAN) 0-5 /HPF (0-5)
[2018-06-02 18:32] LABS: MUCUS,URINE FEW (RARE)
[2018-06-02] MEDS ORDERED: HYDRALAZINE HCL 20 MG/ML VIAL IV STA (19:04)
--- NOTE | 2018-06-02 19:06 | Diagnostic Imaging Report ---
EXAMINATION: CHEST SINGLE (PORTABLE) INDICATION: ^sob ^[id number] ^1840 COMPARISON: None FINDINGS: AP view TUBES and LINES: None. LUNGS: Lungs are well inflated. Pulmonary vascular congestion and mild interstitial edema. PLEURA: No pneumothorax. Trace bilateral pleural effusions. HEART AND MEDIASTINUM: The cardiac silhouette is mildly enlarged. BONES AND SOFT TISSUES: No acute osseous lesion. Soft tissues are unremarkable. UPPER ABDOMEN: No free air under the diaphragm. IMPRESSION: Mildly enlarged cardiac silhouette, central vascular congestion, and mild interstitial edema. There is also trace bilateral pleural effusions. Signed by: Dr. Renaldo West MD on 06/02/2018 7:02 PM
[2018-06-02 19:10] LABS: BASOPHILS % 0.4 % (0.0-1.0); EOSINOPHILS # (AUTO) 0.2 (0.0-0.4); EOSINOPHILS % 2.2 % (0.0-6.0); HEMATOCRIT 33.8 % (38.2-49.6); HEMOGLOBIN 10.3 g/dL (14.0-18.0); LYMPHOCYTES # (AUTO) 1.5 (1.0-3.2); LYMPHOCYTES % 18.8 % (18.0-39.1); MEAN CORPUSCULAR HEMOGLOBIN 32.6 pg (28-32); MEAN CORPUSCULAR HGB CONC 30.5 g/dL (31-35); MONOCYTES # (AUTO) 0.6 (0.2-0.8); NEUTROPHILS # (AUTO) 5.7 (2.1-6.9); NEUTROPHILS % 70.4 % (38.7-80.0); PLATELET COUNT 184 x10e3/uL (140-360); RED BLOOD COUNT 3.16 x10e6/uL (4.3-5.7); RED CELL DISTRIBUTION WIDTH 13.1 % (11.7-14.4)
[2018-06-02 19:29] LABS: ALBUMIN 3.5 g/dL (3.5-5.0); ALBUMIN/GLOBULIN RATIO 0.8 (0.8-2.0); ANION GAP 12.8 mmol/L (8-16); CALCIUM 9.4 mg/dL (8.4-10.2); CREATININE, SERUM 2.3 mg/dL (0.72-1.25)
[2018-06-02 19:31] LABS: POTASSIUM 5.8 mmol/L (3.5-5.1)
[2018-06-02 19:35] LABS: CREATINE KINASE MB 5.1 ng/mL (0-5.0)
[2018-06-02] MEDS ORDERED: ASPIRIN 81 MG CHEW TAB PO ONE (20:30)
[2018-06-02] MEDS ORDERED: FUROSEMIDE INJ 10 MG/ML 4 ML VIAL IV ONE (20:30)
--- OUTSIDE RECORDS SUMMARY | 2018-06-02 20:35 | XMS REPORT | Clinical Summary ---
Author Author HEIDY [facility] Address Unknown Phone Unavailable Care Team Providers Care Hospice Entrance Attendant Name Role Phone Rosa Sotomayor PCP Unavailable [...] Address Plan / Group TEXANPL[employer] TEXANPL[employer] xxxxxxxxx [facility] ALL Contracted Advance Directives For more information, please contact: [facility] [address] [place] [address] Date Inactivated Comments Code Status Date Activated 04/25/2017 5:42 PM Full Code 04/15/2017 8:29 PM This code status was determined by: Patient 05/10/2014 12:27 PM Full Code 05/09/2014 4:14 PM This code status was determined by: Patient
[2018-06-02] MEDS ORDERED: IPRAT-ALBUT 0.5-3 ML (21:04)
[2018-06-02] MEDS ORDERED: SIMVASTATIN40 MG (21:04)
[2018-06-02] MEDS ORDERED: FUROSEMIDE40 MG (21:04)
[2018-06-02] MEDS ORDERED: METOLAZONE2.5 MG (21:04)
[2018-06-02] MEDS ORDERED: GABAPENTIN300 MG (21:04)
[2018-06-02] MEDS ORDERED: DOXYCYCLINE HY100 MG (21:04)
[2018-06-02] MEDS ORDERED: HYDROCODON-ACE1 EAC9 (21:04)
[2018-06-02] MEDS ORDERED: FLUTICASONE PRO16 GM (21:04)
[2018-06-02] MEDS ORDERED: PREDNISONE20 MG (21:04)
[2018-06-02] MEDS ORDERED: DOXYCYCLINE HY100 M3 (21:04)
[2018-06-02] MEDS ORDERED: DONEPEZIL HCL5 MG (21:04)
[2018-06-02 22:45] VITALS: BP 176/77
[2018-06-03] VITALS (7 sets, daily range): BP systolic 149–176; BP diastolic 69–86
[2018-06-03 04:23] LABS: BASOPHILS % 0.3 % (0.0-1.0); EOSINOPHILS # (AUTO) 0.1 (0.0-0.4); HEMATOCRIT 34.9 % (38.2-49.6); HEMOGLOBIN 10.8 g/dL (14.0-18.0); LYMPHOCYTES # (AUTO) 2.9 (1.0-3.2); LYMPHOCYTES % 24.3 % (18.0-39.1); MEAN CORPUSCULAR HEMOGLOBIN 32.3 pg (28-32); MEAN CORPUSCULAR HGB CONC 30.9 g/dL (31-35); MEAN CORPUSCULAR VOLUME 104.5 fL (81-99); MONOCYTES # (AUTO) 0.7 (0.2-0.8); MONOCYTES % 5.8 % (4.4-11.3); NEUTROPHILS # (AUTO) 8.1 (2.1-6.9); NEUTROPHILS % 68.1 % (38.7-80.0); PLATELET COUNT 204 x10e3/uL (140-360); RED BLOOD COUNT 3.34 x10e6/uL (4.3-5.7); RED CELL DISTRIBUTION WIDTH 13.1 % (11.7-14.4)
[2018-06-03 04:42] LABS: ALBUMIN 3.5 g/dL (3.5-5.0); ALBUMIN/GLOBULIN RATIO 0.9 (0.8-2.0); ANION GAP 14.7 mmol/L (8-16); CALCIUM 9.8 mg/dL (8.4-10.2); CREATININE, SERUM 2.39 mg/dL (0.72-1.25); POTASSIUM 4.7 mmol/L (3.5-5.1)
[2018-06-03 06:41] LABS: CREATINE KINASE MB 8.1 ng/mL (0-5.0)
[2018-06-03] MEDS ORDERED: FUROSEMIDE INJ 10 MG/ML 4 ML VIAL IV SCH (09:00)
[2018-06-03] MEDS: MUPIROCIN 2% OINT 22 GM TUBE TOP SCH (09:11)
[2018-06-03] MEDS: COLLAGENASE 5 GM TUBE TOP SCH (09:11)
[2018-06-03] MEDS ORDERED: HYDRALAZINE HCL 20 MG/ML VIAL IV PRN (11:30)
[2018-06-03] MEDS: CARVEDILOL 3.125 MG TAB PO SCH ×2 (12:20→17:40)
[2018-06-03] MEDS ORDERED: ASPIRIN 325 MG TAB PO SCH (12:30)
[2018-06-03 12:51] LABS: CREATINE KINASE MB 9.3 ng/mL (0-5.0)
[2018-06-03] MEDS ORDERED: METOLAZONE 5 MG TAB PO NR (13:30)
--- NOTE | 2018-06-03 14:28 | Diagnostic Imaging Report ---
EXAMINATION: CHEST SINGLE (PORTABLE) COMPARISON: Chest x-ray 06/02/2018 INDICATION: Shortness of breath, weakness DISCUSSION: Frontal view of the chest obtained at 1342 hours. 2 images submitted due to incomplete visualization of the lung apices. HEART AND MEDIASTINUM: Stable mild cardiomegaly LINES: None. LUNGS: Diffuse hyperinflation consistent with COPD. No evidence of infiltrate. No interstitial thickening. Pulmonary vascular markings are normal. PLEURA: No large effusions. No pneumothorax. BONES AND SOFT TISSUES: Healed right rib fractures. Mild degenerative changes of the spine. No focal osseous lesion. The soft tissues are normal. IMPRESSION: 1. Pulmonary hyperinflation consistent with COPD. 2. Haziness in the right lung base may be the result of atelectasis or infiltrate. Recommend further evaluation with PA and lateral chest x-ray if clinically feasible. 3. Stable cardiomegaly. No vascular congestion or CHF. Signed by: Dr. Olman Siegel MD on 06/03/2018 2:25 PM
--- NOTE | 2018-06-03 15:59 | Consultation ---
DATE OF CONSULTATION: June 03, 2018 CARDIOLOGY CONSULTATION REASON FOR CONSULTATION: Shortness of breath and elevated troponin. HISTORY OF PRESENT ILLNESS: Mr. Flynn is an 87-year-old gentleman with a past medical history of hypertension, chronic kidney disease, stage 4-5, COPD, heavy former smoker, who came in today with 1-week history of progressively worsening blood pressure elevation, dyspnea, inability to catch his breath, and worsening swelling in his legs. The patient at baseline has also superimposed chronic venous insufficiency. Reports that he was taking metolazone 5 mg every week and Lasix 80 mg daily. However, when they last saw his PCP, his legs were completely dry and had episodes of hypotension. For fear of him becoming dehydrated, the diuretic therapy was stopped about 2 weeks ago. At that time, he has not since restarted diuretic therapy. For a period of time, he also was on a low salt diet. However, has long given up on that. Nonetheless, the patient came in with progressively worsening exertional dyspnea to the point of rest redeveloping orthopnea and worsening lower extremity swelling. He reports still good appetite. Upon admission, the patient was noted to have elevated BNP in the 1000 range, as well as troponin elevated at 0.9. His EKG revealed sinus rhythm with no ST-T wave changes concerning for ischemia. The patient is adamant that he denies any chest pain or discomfort. We had a long discussion also with his family and the patient in regards to the likelihood of coronary disease. According to the daughter, he just wants conservative therapy due to the high risk of developing contrast nephropathy and end-stage renal progression. PAST MEDICAL HISTORY 1. COPD, former heavy smoker. 2. Chronic kidney disease, stage 4-5. Has been closely monitored. 3. Mild to moderate cognitive impairment on donepezil therapy. 4. Severe peripheral neuropathy, unclear etiology. PAST SURGICAL HISTORY: History of left craniotomy secondary to subdural hematoma from fall about a year ago. FAMILY HISTORY: Patient does not really recall anyone in his family with coronary disease. SOCIAL HISTORY: He is a former smoker. Quit smoking 30 years ago. Denies any alcohol or illicit drug use. ALLERGIES: INCLUDE PENICILLIN. HOME MEDICATIONS 1. Aricept 5 mg daily. 2. Lasix 80 mg every day, which he quit several weeks ago. 3. Metolazone 5 mg weekly, which he quit several weeks ago. 4. Gabapentin 300 mg at bedtime. REVIEW OF SYSTEMS GENERAL: Denies any fevers or chills. Positive for shortness of breath and malaise, and some slight weight gainage. HEENT: No headaches or visual complaints, sore throat, stuffy nose. RESPIRATORY: Denies any pleuritic chest pain. Has had some nonproductive cough. CARDIOVASCULAR: Denies any overt chest pain or atypical angina symptoms. Positive for orthopnea. No PND. No subjective palpitations, syncope or near syncope. GI: Denies any abdominal pain, bright red blood per rectum, melena, hematemesis. Reports his appetite is good. : Has reported decreased urinary frequency and decreased urinary stream, and recent history after cutting back on diuresis. MUSCULOSKELETAL: Has chronic lower back pains and arthritis. Reports some chronic tingling in his leg and pains in his leg from his neuropathy and some slight leg swelling. ENDOCRINE: Denies any heat or cold intolerance. NEUROLOGIC: Denies any history of TIA or stroke. Denies any focal weakness. Again, does have some tingling below his knees. SKIN: Has chronic rashes and scaliness in his legs below the knees bilaterally with skin texture and color change. The remainder of the review of systems negative otherwise than mentioned. PHYSICAL EXAMINATION VITALS: Height is 67 inches, weight of 190 pounds. BMI is 29.8. Temperature of 97.4, pulse of 86, respiratory rate of 24, blood pressure is 176/86, O2 sat 93% on 2 L nasal cannula. GENERAL: This is a well-nourished, well-developed gentleman who seems a little bit forgetful. Currently, in no apparent distress. HEENT: Pupils equal, round and reactive to light. Extraocular movements are intact. Oropharynx is clear. NECK: No carotid bruits. There is elevation of jugular venous pulsation mcfp up the mandible. CARDIOVASCULAR: Regular rate and rhythm. Normal S1 and S2. A 3/6 systolic ejection murmur at the right upper sternal border. LUNGS: Show very poor air flow throughout the lung blood compatible with advanced COPD changes. Some slight diminished bibasilar breath sounds and crackles. ABDOMEN: Soft, nontender and nondistended. Normoactive bowel sounds. No hepatosplenomegaly. BACK: No costovertebral angle tenderness. EXTREMITIES: Warm. There are absent pedal pulses bilaterally. One plus radial pulses bilaterally. There is dependent ruber and 1+ edema to the mid-shins bilaterally and scaliness and lipodermatosclerotic changes in the infra-pittman legs bilaterally. NEUROLOGIC: Cranial nerves II-XII are grossly intact. Strength is seemingly preserved and he appears nonfocal. PSYCH: Denies any anxiety or depression. LABS: White count of 11.9, hemoglobin 10.8, hematocrit 34.9, and platelets of 204,000. Sodium 137, potassium 4.7, chloride 101, bicarb 26, BUN 39, creatinine 2.39, glucose of 118. Calcium of 9.8, AST 23, ALT 31, alk phos 102, total protein 7.6, albumin of 3.5. Troponin went from 0.958 to 0.574. BNP was noted to be elevated at 1116. UA shows 21-50 red blood cells, but no white cells. Chest x-ray reveals COPD type changes, as well as vascular congestion and mild interstitial edema with trace bilateral pleural effusion. EKG reveals normal sinus rhythm, normal axis and no ST-T wave changes concerning for ischemia. DIAGNOSES 1. Mgttg-ol-bisrhhk decompensated diastolic heart failure. 2. Demand asq-ZI-mpwvirl elevation myocardial infarction secondary to heart failure. 3. Chronic kidney disease, stage 4. 4. Recently stopped diuretic use per primary physician. 5. Cognitive impairment, on Aricept therapy. 6. 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 PLAN/RECOMMENDATIONS 1. From a cardiovascular standpoint, we had a long discussion with the patient, as well as his daughter, who is at bedside. In light of his advanced CKD, stopping all his diuretics for an extended period of time is probably unwise, and is likely to reaccumulate in fluid especially in light of not willing to be entirely compliant with a low salt restricted diet. Once the patient is close to euvolemia, he can decrease his diuretic to maybe every other or every 3rd day of Lasix. 2. For the time being, will continue IV diuretic therapy for today. Likely transition to p.o. therapy tomorrow. 3. In terms of his elevated troponin, high likelihood of pretest probability of CAD in light of age, comorbidities. However, family likely so does not want any invasive cardiac procedures due to his high risk of end-stage renal progression from contrast and studies. 4. Will follow up on echocardiogram to get evaluation of his heart failure grossly. 5. Started him on Coreg therapy for beta gaby therapy. 6. Will avoid any YASMIN or ARB in light of advanced CKD. We would not want to worsen his kidney function. Will continue to follow this patient. Thank you for this referral. Job#: [id number] LEVY
[2018-06-03] MEDS ORDERED: FUROSEMIDE INJ 10 MG/ML 4 ML VIAL IV NR (16:00)
[2018-06-03] MEDS: HEPARIN SOD (PORCINE) 5,000 UNIT/ML VIAL SC SCH (20:56)
[2018-06-03] MEDS ORDERED: ATORVASTATIN 10 MG TAB PO SCH (21:00)
[2018-06-03] MEDS ORDERED: ATORVASTATIN 20 MG TAB PO SCH (21:00)
[2018-06-04] VITALS: BP 144/67
[2018-06-04 04:00] VITALS: BP 145/75
[2018-06-04 05:41] LABS: BASOPHILS % 0.3 % (0.0-1.0); EOSINOPHILS # (AUTO) 0.1 (0.0-0.4); EOSINOPHILS % 1.8 % (0.0-6.0); HEMATOCRIT 32.1 % (38.2-49.6); LYMPHOCYTES % 25.3 % (18.0-39.1); MEAN CORPUSCULAR HEMOGLOBIN 31.7 pg (28-32); MEAN CORPUSCULAR HGB CONC 31.2 g/dL (31-35); MEAN CORPUSCULAR VOLUME 101.9 fL (81-99); MONOCYTES # (AUTO) 0.6 (0.2-0.8); MONOCYTES % 7.2 % (4.4-11.3); NEUTROPHILS # (AUTO) 5.1 (2.1-6.9); NEUTROPHILS % 64.9 % (38.7-80.0); PLATELET COUNT 195 x10e3/uL (140-360); RED BLOOD COUNT 3.15 x10e6/uL (4.3-5.7); RED CELL DISTRIBUTION WIDTH 13.2 % (11.7-14.4)
[2018-06-04 06:04] LABS: INR 0.92; PROTHROMBIN TIME 13.2 seconds (11.9-14.5)
[2018-06-04 06:05] LABS: PARTIAL THROMBOPLASTIN TIME 30.7 seconds (23.8-35.5)
[2018-06-04 06:11] LABS: ANION GAP 15.3 mmol/L (8-16); CALCIUM 9.6 mg/dL (8.4-10.2); CHOL/HDL RATIO 2.9 (3.9-4.7); CREATININE, SERUM 2.53 mg/dL (0.72-1.25); POTASSIUM 4.3 mmol/L (3.5-5.1)
[2018-06-04 08:00] VITALS: BP 166/73
[2018-06-04] MEDS ORDERED: ASPIRIN 81 MG ENTERIC COATED PO SCH (09:00)
[2018-06-04] MEDS ORDERED: FUROSEMIDE 40 MG TAB PO SCH (09:00)
[2018-06-04] MEDS: CARVEDILOL 3.125 MG TAB PO SCH (09:20)
[2018-06-04] MEDS: HEPARIN SOD (PORCINE) 5,000 UNIT/ML VIAL SC SCH (09:50)
[2018-06-04] MEDS: COLLAGENASE 5 GM TUBE TOP SCH (10:47)
[2018-06-04] MEDS: MUPIROCIN 2% OINT 22 GM TUBE TOP SCH (10:47)
[2018-06-04] MEDS ORDERED: CARVEDILOL 3.125 MG TAB PO SCH (11:30)
[2018-06-04] MEDS ORDERED: CARVEDILOL 3.125 MG TAB PO ONE (11:30)
[2018-06-04 11:58] VITALS: BP 163/80
[2018-06-04] MEDS ORDERED: LASIX40 MG PO (14:02)
[2018-06-04] MEDS ORDERED: COREG3.125 MG PO (14:02)
[2018-06-04] MEDS ORDERED: ASPIRIN81 MG PO (14:03)
--- NOTE | 2018-06-04 21:17 | Discharge Summary ---
PRIMARY CARE DOCTOR: Dr. Hai Lopez with [facility]. FINAL DIAGNOSIS: Pnp-FU-mxaoydtek myocardial infarction. SECONDARY DIAGNOSES 1. Acute diastolic congestive heart failure. 2. Stage 4 chronic kidney disease, stable. 3. Uncontrolled hypertension, better. MANAGER CATH LAB: Dr. Lagos, cardiology. PROCEDURES/STUDIES PERFORMED: Echocardiogram. HISTORY: Per H&P. HOSPITAL COURSE: Patient was admitted. Patient was diuresed with IV Lasix. The patient was evaluated by Cardiology for his xbz-AO-rerqwnzsi OK and recommended medical management. Patient will be on aspirin and Coreg and a statin. Echocardiogram showed a normal EF. His creatinine remained stable in the mid-2 range. His troponin peaked at 0.958 and is trending down. He received heparin subcut for DVT prophylaxis. I also updated his primary care doctor about this hospitalization. Patient was seen and examined today. It took 32 minutes total to discharge this patient. CONDITION ON DISCHARGE: Improved. DISCHARGE MEDICATIONS: Please see medication reconciliation form. CHRISTOPHER CASTANO M.D. Job#: [id number] EV cc:HAI LOPEZ MD
== END 2018-06-04 14:24 | disposition home health service (06) | DRG 280 ==
LOC: ER 17:01 → ERHOLD 20:32 → MED/SURG3 22:46
PROVIDERS: ADMIT Internal Medicine; ATTEND Internal Medicine
DX: I13.0 Hypertensive heart and chronic kidney disease with heart failure and stage 1 through stage 4 chronic kidney disease, or unspecified chronic kidney disease (principal); I50.33 Acute on chronic diastolic (congestive) heart failure; I21.A1 Myocardial infarction type 2; N18.4 Chronic kidney disease, stage 4 (severe); J96.10 Chronic respiratory failure, unspecified whether with hypoxia or hypercapnia; E11.22 Type 2 diabetes mellitus with diabetic chronic kidney disease; E11.65 Type 2 diabetes mellitus with hyperglycemia; Z79.4 Long term (current) use of insulin; J44.9 Chronic obstructive pulmonary disease, unspecified; F17.210 Nicotine dependence, cigarettes, uncomplicated; G31.84 Mild cognitive impairment of uncertain or unknown etiology; G62.9 Polyneuropathy, unspecified; I87.2 Venous insufficiency (chronic) (peripheral); I25.10 Atherosclerotic heart disease of native coronary artery without angina pectoris; F03.90 Unspecified dementia, unspecified severity, without behavioral disturbance, psychotic disturbance, mood disturbance, and anxiety
CPT/HCPCS: 36415; 71045; 80048; 80053; 80061; 81001; 82550; 82553; 83735; 83880; 84484; 85025; 85610; 85730; 93005; 93306; 97139; 99284; J0360; J1644; J1940